=== PATIENT | male | born 1950 | race Caucasian/White ===

== ENCOUNTER 2018-04-27 13:15 | Emergency (ER) | payer MEDICARE, MEDICAID | END 2018-04-27 13:20 | disposition left against medical advice (07) | LOC: ER 13:15 | DX: Z53.21 Procedure and treatment not carried out due to patient leaving prior to being seen by health care provider (principal) ==

== ENCOUNTER 2018-06-08 19:10 | Emergency (ER) | payer MEDICARE, MEDICAID ==
[~2018-06-08] VITALS: Ht 172.7 cm; Wt 61.2 kg
[2018-06-08] MEDS ORDERED: DOCUSATE SODIUM 100 MG/10 ML LIQUID UDC ONE (20:09)
[2018-06-08] MEDS: DOCUSATE SODIUM 100 MG/10 ML LIQUID UDC OT ONE (20:14)
[2018-06-08 20:58] VITALS: BP 124/75
== END 2018-06-08 20:59 | disposition home or self-care (01) ==
LOC: ER 19:10
DX: H61.23 Impacted cerumen, bilateral (principal); K58.9 Irritable bowel syndrome, unspecified; F12.10 Cannabis abuse, uncomplicated; Z88.0 Allergy status to penicillin
CPT/HCPCS: A4663

== ENCOUNTER 2018-06-10 16:53 | Emergency (ER) | payer MEDICARE, MEDICAID ==
[~2018-06-10] VITALS: Ht 172.7 cm; Wt 70.3 kg
--- NOTE | 2018-06-10 17:11 | NUR ---
PATIENT WALKING TO ER EATING SHUKLA SANDWICH/CHOCOLATE MILK C/O CHRONIC ABD PAIN DENIES NAUSEA VOMITING DIARRHEA.
[2018-06-10] MEDS ORDERED: MAGNESIUM HYDROXIDE 30 ML LIQUID UDC ONE (17:57)
[2018-06-10] MEDS ORDERED: MAGNESIUM HYDROXIDE 30 ML LIQUID UDC PO ONE (18:00)
[2018-06-10 18:01] VITALS: BP 118/70
--- NOTE | 2018-06-10 18:02 | NUR ---
PATIENT CONDITION STABLE D/C HOME WITH INSTRUCTIONS AFTER CARE REVIEWED UNDERSTOOD LEFT ER VIA SELF ALERT, ORIENTED X4 AMBULATORY WITH STEADY GAIT.
== END 2018-06-10 18:03 | disposition home or self-care (01) ==
LOC: ER 16:56
DX: K59.00 Constipation, unspecified (principal); F12.10 Cannabis abuse, uncomplicated; Z88.0 Allergy status to penicillin
CPT/HCPCS: A4663

== ENCOUNTER 2018-06-19 15:01 | Inpatient (IN) | payer MEDICARE, MEDICAID ==
[~2018-06-19] VITALS: Ht 172.7 cm; Wt 64.4 kg
[2018-06-19] MEDS: LEVOFLOXACIN 500 MG/D5W 500 MG in PREMIXED 1 EACH IV SCH (00:21)
[2018-06-19] MEDS ORDERED: IV NORMAL SALINE 1000 ML BAG IV ONE (16:30)
[2018-06-19] MEDS ORDERED: DIATR MEGLU/DIATRIZOATE SODIUM 30 ML SOLUTION PO ONE (16:30)
[2018-06-19 16:42] LABS: *BILIRUBIN,URIN NEGATIVE (NEGATIVE); *BLOOD, URINE 2+ (NEGATIVE); *CLARITY,URINE CLEAR (CLEAR); *COLOR,URINE YELLOW (YELLOW); *KETONES,URINE NEGATIVE (NEGATIVE); *UROBILINOGEN,URINE 0.2 E.U./dl (NORMAL); LEUKOCYTE ESTERASE ,URINE NEGATIVE (NEGATIVE); NITRITE, URINE NEGATIVE (NEGATIVE); UGLUCOSE NEGATIVE (NEGATIVE)
[2018-06-19] MEDS ORDERED: DIATR MEGLU/DIATRIZOATE SODIUM 30 ML SOLUTION ONE (16:45)
[2018-06-19 16:51] LABS: BASOPHILS # (AUTO) 0.1 K/uL (0.0-8.0); BASOPHILS % (AUTO) 0.6 % (0.0-2.0); EOSINOPHILS % (AUTO) 0.3 % (0.0-7.0); HEMATOCRIT 42.1 % (36.7-47.1); HEMOGLOBIN 14.3 g/dL (12.5-16.3); LYMPHOCYTES # (AUTO) 1.6 K/uL (20.0-40.0); LYMPHOCYTES % (AUTO) 10.9 % (20.5-51.5); MEAN CORPUSCULAR HEMOGLOBIN 30.2 uug (23.8-33.4); MEAN CORPUSCULAR HGB CONC 34 g/dL (32.5-36.3); MEAN CORPUSCULAR VOLUME 89.2 fL (73.0-96.2); MONOCYTES # (AUTO) 1.4 K/uL (2.0-10.0); MONOCYTES % (AUTO) 9.6 % (0.0-11.0); NEUTROPHILS # (AUTO) 11.4 K/uL (1.8-8.9); NEUTROPHILS % (AUTO) 78.6 % (38.5-71.5); PLATELET COUNT (AUTO) 348 K/uL (152-348); RED BLOOD CELL COUNT(AUTO) 4.72 MIL/uL (4.06-5.63); WHITE BLOOD COUNT (AUTO) 14.5 K/uL (3.6-10.2)
[2018-06-19 16:59] LABS: CREATININE 1.2 mg/dL (0.6-1.3); POTASSIUM 3.8 mmol/L (3.5-5.1)
[2018-06-19 17:05] LABS: BILIRUBIN,DIRECT 0.1 mg/dL (0.0-0.2); BILIRUBIN,TOTAL 0.5 mg/dL (0.2-1.0)
[2018-06-19 17:08] LABS: MUCUS,URINE MANY /LPF (0-FEW); SQUAMOUS EPITHELIAL CELL,UR FEW /HPF (NONE SEEN); WBC,URINE 0-3 /HPF (0-3)
[2018-06-19] MEDS ORDERED: IV NORMAL SALINE 250 ML IV ONE (17:29)
[2018-06-19] MEDS ORDERED: NORMAL SALINE FLUSH 10 ML DISP.SYRIN ONE (17:29)
[2018-06-19] MEDS ORDERED: IOHEXOL 300MG/ML 100 ML INFUS..BTL ONE (17:29)
[2018-06-19] MEDS ORDERED: SWABABLE VALVE TRANSFER SET EA MC ONE (17:29)
--- NOTE | 2018-06-19 18:45 | NUR ---
Pt back from CT, NAD noted.
--- NOTE | 2018-06-19 19:09 | NUR ---
Received order from Previous RN. Awaiting results of CT abdomen and pelvis. Visual check done. Will continue to monitor.
--- NOTE | 2018-06-19 20:05 | NUR ---
CT results relayed to MD. Panel call made to possible admitting MD.
--- NOTE | 2018-06-19 22:00 | NUR ---
RECEIVED PATIENT VIA GURNEY FROM ER. PATIENT IS A/O X 3-4. VERY HYPER-VERBAL. NEEDS REDIRECTION AT TIMES. VSS UPON ADMISSION. PATIENT DENIES PAIN OR DISCOMFORT. NO RESP. DISTRESS NOTED. H/L INTACT AND PATENT. ORIENTED PATIENT TO ROOM AND CALL LIGHT. CALL LIGHT IN REACH. ALL NEEDS ATTENDED. WILL CONTINUE TO MONITOR AND ASSESS.
[2018-06-19] MEDS ORDERED: ONDANSETRON 4 MG/2 ML VIAL IV PRN (23:00)
[2018-06-19] MEDS ORDERED: ACETAMINOPHEN 325 MG TABLET PO PRN (23:00)
[2018-06-19] MEDS ORDERED: Z GUARD REMEDY PASTE 57 GM TUBE TOP PRN (23:00)
[2018-06-19] MEDS ORDERED: LEVOFLOXACIN 500 MG/D5W 100 ML ONE (23:09)
[2018-06-19] MEDS ORDERED: METRONIDAZOLE 500 MG/NS 100ML 100 ML IV ONE (23:09)
[2018-06-19] MEDS: IV NS 1000 ML 1,000 ML IV PRN (23:12)
[2018-06-19] MEDS: METRONIDAZOLE 500 MG/NS 100ML 500 MG in PREMIXED 1 EACH IV SCH ×2 (23:21→23:48)
[2018-06-20 05:27] VITALS: BP 116/75
[2018-06-20] MEDS ORDERED: METRONIDAZOLE 500 MG/NS 100ML 100 ML IV ONE (05:41)
[2018-06-20] MEDS: METRONIDAZOLE 500 MG/NS 100ML 500 MG in PREMIXED 1 EACH IV SCH ×3 (06:00→21:05)
[2018-06-20] MEDS: PANTOPRAZOLE SODIUM 40 MG TABLET.DR PO SCH (06:11)
[2018-06-20 06:17] LABS: BILIRUBIN,TOTAL 0.5 mg/dL (0.2-1.0); CREATININE 0.9 mg/dL (0.6-1.3); TOTAL PROTEIN, SERUM 6.6 g/dL (6.4-8.2)
[2018-06-20 06:28] LABS: THYROID STIMULATING HORMONE 1.585 mIU/mL (0.358-3.740)
[2018-06-20 06:54] LABS: BASOPHILS % (AUTO) 0.4 % (0.0-2.0); EOSINOPHILS # (AUTO) 0.2 K/uL (0.0-0.7); EOSINOPHILS % (AUTO) 1.4 % (0.0-7.0); HEMATOCRIT 37.7 % (36.7-47.1); HEMOGLOBIN 12.9 g/dL (12.5-16.3); LYMPHOCYTES # (AUTO) 1.5 K/uL (20.0-40.0); MEAN CORPUSCULAR HGB CONC 34 g/dL (32.5-36.3); MEAN CORPUSCULAR VOLUME 90.3 fL (73.0-96.2); MONOCYTES # (AUTO) 1.1 K/uL (2.0-10.0); MONOCYTES % (AUTO) 9.9 % (0.0-11.0); NEUTROPHILS # (AUTO) 8.1 K/uL (1.8-8.9); NEUTROPHILS % (AUTO) 74.3 % (38.5-71.5); PLATELET COUNT (AUTO) 291 K/uL (152-348); RED BLOOD CELL COUNT(AUTO) 4.17 MIL/uL (4.06-5.63)
[2018-06-20 11:05] VITALS: BP 128/75
[2018-06-20 15:31] VITALS: BP 112/64
[2018-06-20 19:00] VITALS: BP 129/70
--- NOTE | 2018-06-20 19:20 | NUR ---
Received patient walking in the hallway. A/Ox3-4. Denies any pain, has no SOB. Has an IV line on the right forearm, intact and patent. IVF infusing. Has no complaints of pain or discomfort. Needs assessed and attedned to. Safety and comfort measures initiated. Call martínez within reach. Will continue to monitor.
[2018-06-20] MEDS: ENOXAPARIN SODIUM 40 MG/0.4 ML DISP.SYRIN SQ SCH (20:25)
[2018-06-20] MEDS: IV NS 1000 ML 1,000 ML IV PRN (21:00)
[2018-06-20] MEDS: LEVOFLOXACIN 500 MG/D5W 500 MG in PREMIXED 1 EACH IV SCH (22:34)
[2018-06-20] MEDS: ZOLPIDEM 5 MG TABLET PO PRN (22:35)
[2018-06-21 04:00] VITALS: BP 110/64
[2018-06-21] MEDS: METRONIDAZOLE 500 MG/NS 100ML 500 MG in PREMIXED 1 EACH IV SCH ×2 (05:05→13:43)
[2018-06-21] MEDS: PANTOPRAZOLE SODIUM 40 MG TABLET.DR PO SCH (06:12)
--- NOTE | 2018-06-21 06:32 | NUR ---
Patient AAOx3. In no acute distress. No complaints of pain or SOB. IV line on the right forearm intact and patent. IVF infusing. No adverse reaction noted from IV ABX. Needs assessed and attended to. Safety measures maintained, call martínez within reach.
[2018-06-21 06:49] LABS: POTASSIUM 3.8 mmol/L (3.5-5.1)
[2018-06-21 07:02] LABS: BASOPHILS % (AUTO) 0.5 % (0.0-2.0); EOSINOPHILS # (AUTO) 0.1 K/uL (0.0-0.7); EOSINOPHILS % (AUTO) 1.4 % (0.0-7.0); HEMATOCRIT 42.6 % (36.7-47.1); HEMOGLOBIN 14.2 g/dL (12.5-16.3); LYMPHOCYTES # (AUTO) 1.5 K/uL (20.0-40.0); LYMPHOCYTES % (AUTO) 16.4 % (20.5-51.5); MEAN CORPUSCULAR HEMOGLOBIN 30.3 uug (23.8-33.4); MEAN CORPUSCULAR HGB CONC 33 g/dL (32.5-36.3); MEAN CORPUSCULAR VOLUME 90.9 fL (73.0-96.2); MONOCYTES # (AUTO) 0.9 K/uL (2.0-10.0); NEUTROPHILS # (AUTO) 6.6 K/uL (1.8-8.9); NEUTROPHILS % (AUTO) 71.7 % (38.5-71.5); PLATELET COUNT (AUTO) 309 K/uL (152-348); RED BLOOD CELL COUNT(AUTO) 4.69 MIL/uL (4.06-5.63); WHITE BLOOD COUNT (AUTO) 9.2 K/uL (3.6-10.2)
[2018-06-21 11:12] VITALS: BP 126/72
[2018-06-21] MEDS: IV NS 1000 ML 1,000 ML IV PRN (12:59)
[2018-06-21] MEDS ORDERED: FLEET ENEMA 133 ML BOTTLE RC PRN (14:00)
[2018-06-21] MEDS: LORAZEPAM 2 MG/1 ML VIAL IV PRN ×2 (14:16→23:33)
[2018-06-21 15:25] VITALS: BP 118/76
--- NOTE | 2018-06-21 18:46 | NUR ---
TODAY A CODE KENNETH WAS CALLED BECAUSE PT WAS HYPERVERBAL AND THREATENED THE CHARGE NURSE AND THE GI YARD MOTOR OPERATOR. PT IS SCREAMING AND BEING DISRUPTIVE ON THE UNIT. ATUL MOSS ORDERED ATIVAN FOR PT. MEDICATION EFFECTIVE. PT WILL BE NPO AFTER MIDNIGHT FOR SIGMOIDOSCOPY TOMORROW. PT IS AOX3, COOPERATIVE AT THIS TIME. SHOWS NO SIGNS OF RESPIRATORY DISTRESS.CONTINUE TO MONITOR PT.
[2018-06-21 19:00] VITALS: BP 129/82
--- NOTE | 2018-06-21 19:00 | NUR ---
RECEIVED PATIENT IN BED ALERT ORIENTED, WALKS AROUND HALLWAYS, REDIRECT PATIENT TO STAY IN HIS ROOM, PATIENT FOLLOW INSTRUCTIONS, REQUESTED IF HE CAN HAVE SHOWER, ASSISTED BY ELECTRIC METER READER IN SHOWER ROOMS. CONT TO MONITOR.
[2018-06-21] MEDS: ENOXAPARIN SODIUM 40 MG/0.4 ML DISP.SYRIN SQ SCH (20:08)
[2018-06-21] MEDS: METRONIDAZOLE 500 MG TABLET PO SCH (21:14)
[2018-06-21] MEDS: LEVOFLOXACIN 500 MG TABLET PO SCH (22:28)
--- NOTE | 2018-06-21 23:40 | NUR ---
PATIENT AGITATED AND UPSET TO GI PATROL POLICE SERGEANT, AND TELLING STAFF THAT HE HAD CONVERSATION TO PATROL POLICE SERGEANT EARLIER DURING AM SHIFT, AND PATIENT DID NOT LIKE IT. PATIENT AMBULATES AND WANDERS AROUND, REDIRECT PATIENT NOT TO WANDER AROUND OTHER ROOMS, AND TO KEPT VOICE DOWN. MEDICATE PATIENT FOR AGITATION, WILL CONTINUE TO MONITOR.
[2018-06-22] MEDS: ZOLPIDEM 5 MG TABLET PO PRN ×2 (00:05→23:30)
--- NOTE | 2018-06-22 01:30 | NUR ---
PATIENT STAYED IN HIS ROOM, MEDICATION FOR AGITATION EFFECTIVE AT THIS TIME. WILL CONT TO MONITOR.
[2018-06-22 04:00] VITALS: BP 118/78
--- NOTE | 2018-06-22 04:03 | NUR ---
PATIENT REFUSED IV FLUIDS, GETS AGITATED, STATING WANTING TO SLEEP. CONT TO MONITOR.
[2018-06-22] MEDS: PANTOPRAZOLE SODIUM 40 MG TABLET.DR PO SCH (06:38)
[2018-06-22] MEDS: METRONIDAZOLE 500 MG TABLET PO SCH ×3 (06:38→21:36)
[2018-06-22 06:59] LABS: BASOPHILS % (AUTO) 0.5 % (0.0-2.0); EOSINOPHILS # (AUTO) 0.2 K/uL (0.0-0.7); LYMPHOCYTES # (AUTO) 1.2 K/uL (20.0-40.0); LYMPHOCYTES % (AUTO) 16.2 % (20.5-51.5); MEAN CORPUSCULAR HEMOGLOBIN 30.6 uug (23.8-33.4); MEAN CORPUSCULAR HGB CONC 34 g/dL (32.5-36.3); MEAN CORPUSCULAR VOLUME 89.9 fL (73.0-96.2); MONOCYTES # (AUTO) 0.7 K/uL (2.0-10.0); MONOCYTES % (AUTO) 9.7 % (0.0-11.0); NEUTROPHILS # (AUTO) 5.3 K/uL (1.8-8.9); NEUTROPHILS % (AUTO) 71.6 % (38.5-71.5); PLATELET COUNT (AUTO) 280 K/uL (152-348); RED BLOOD CELL COUNT(AUTO) 4.18 MIL/uL (4.06-5.63); WHITE BLOOD COUNT (AUTO) 7.5 K/uL (3.6-10.2)
[2018-06-22 07:07] LABS: CREATININE 0.9 mg/dL (0.6-1.3); POTASSIUM 4.1 mmol/L (3.5-5.1)
--- NOTE | 2018-06-22 07:14 | NUR ---
PATIENT SLEPT MOST OF THE NIGHT, CONTINUE TO REFUSED IV FLUIDS GETS AGITATED. ENDORSE TO NEXT SHIFT.
[2018-06-22 07:32] LABS: HEMATOCRIT 37.6 % (36.7-47.1); HEMOGLOBIN 12.8 g/dL (12.5-16.3)
--- NOTE | 2018-06-22 08:00 | NUR ---
RECEIVED PATIENT IN BED ASLEEP, EASILY AROUSED AOX3, IRRITABLE. PATIENT COMPLAINS OF GENERALIZED PAIN BUT DECLINED PAIN MEDICATION AT THIS TIME. LT AC IV INTACT. WILL CONTINUE TO MONITOR FOR SAFETY. Addendum: 06/22/18 at 1636 by YULISA MASON RN RECEIVED PATIENT IN BED ASLEEP, EASILY AROUSED AOX3, IRRITABLE. PATIENT COMPLAINS OF GENERALIZED PAIN BUT DECLINED PAIN MEDICATION AT THIS TIME. RT. FOREARM IV INTACT. WILL CONTINUE TO MONITOR FOR SAFETY.
[2018-06-22] MEDS: MIRALAX 17 GM POWD.PACK PO SCH ×2 (09:00→21:07)
--- NOTE | 2018-06-22 10:20 | NUR ---
PATIENT STATED THAT HE FEELS CONSTIPATED BUT HE REFUSED MEDICATION FOR CONSTIPATION. NURSE OFFERED HIM PRUNE JUICE WHICH PATIENT WAS ABLE TO DRINK.
[2018-06-22 11:18] VITALS: BP 121/75
[2018-06-22] MEDS: IV NS 1000 ML 1,000 ML IV PRN (15:24)
--- NOTE | 2018-06-22 17:45 | NUR ---
DURING THE SHIFT PATIENT STATED THAT HE HAS A BODY THAT IS FAILING HIM AND THAT HE WISHES HE WAS . THE PSYCHIATRIST CAME IN TO SEE PATIENT BUT THE PATIENT DID NOT WANT TO TALK WITH HER. RN TOLD DR. ROBLERO THAT THE PATENT STATED TO THE NURSE.
--- NOTE | 2018-06-22 19:30 | NUR ---
PATIENT AGITATED AND IRRITATED THROUGHOUT THE SHIFT. FIXIATED ON GI ISSUES THAT ARE GOING ON WITH HIM AND STATED THAT NO ONE IS ADDRESSING THE GI ISSUE. VITAL SIGNS STABLE THROUGHOUT SHIFT. IV INTACT. REPORT GIVEN TO PROJECT FINANCIAL ANALYST.
--- NOTE | 2018-06-22 19:30 | NUR ---
RECEIVED IN THE ROOM ALERT AWAKE, SLIGHTLY AGITATED, REFUSED TO TAKE ANY SCHEDULED MEDICATIONS AT THIS TIME. WILL CONT TO OFFER.
[2018-06-22 20:00] VITALS: BP 109/62
--- NOTE | 2018-06-22 21:08 | NUR ---
PATIENT COMPLAINING OF CONSTIPATION, AND WANTED TO TAKE HIS MIRALAX MEDICATION WHICH HE REFUSED EARLIER. PATIENT HAD BOWEL MOVEMENT MEDIUM AMOUNT BEFORE MIRALAX AND ENEMA. INSTRUCTED PATIENT TO WAIT FOR THE EFFECT OF MIRALAX. WILL CONT TO MONITOR.
[2018-06-22] MEDS: MORPHINE SULFATE 4 MG/1 ML DISP.SYRIN IV PRN (21:35)
[2018-06-22] MEDS: ENOXAPARIN SODIUM 40 MG/0.4 ML DISP.SYRIN SQ SCH (21:45)
[2018-06-22] MEDS: LEVOFLOXACIN 500 MG TABLET PO SCH (23:16)
[2018-06-23] MEDS: MORPHINE SULFATE 4 MG/1 ML DISP.SYRIN IV PRN ×2 (02:42→08:34)
[2018-06-23 04:00] VITALS: BP 126/67
[2018-06-23] MEDS: METRONIDAZOLE 500 MG TABLET PO SCH ×2 (05:39→14:00)
[2018-06-23] MEDS: PANTOPRAZOLE SODIUM 40 MG TABLET.DR PO SCH (06:09)
--- NOTE | 2018-06-23 06:28 | NUR ---
PATIENT SLEPT MOST OF THE NIGHT CONT ON PAIN MANAGEMENT, PATIENT HAD ONE BOWEL MOVEMENT AFTER MIRALAX, PATIENT HAS MULTIPLE COMPLAIN OF EVERYTHING, STAFF TRIES TO ATTEND PATIENT NEEDS BUT STILL UNHAPPY OF MOSTLY EVERYTHING. WILL ENDORSE PATIENT REQUEST AND COMPLAIN TO AM RN NURSE.
--- NOTE | 2018-06-23 07:30 | NUR ---
PATIENT RECEIVED LYING IN BED AWAKE AND ALERT, IRRITABLE. PATIENT REQUESTING TO KNOW WHAT PLAN WILL BE, PATIENT EDUCATED AND REDIRECTED, PATIENT TO BE SEEN AND MEDICALLY CLEARED, POSSIBLE DISCHARGE. PATIENT HYPERVERBAL, ARGUMENTATIVE. PATIENT DOES NOT LIKE ANSWER REGARDLESS OF INFORMATION PROVIDED TO HIM.
[2018-06-23] MEDS: IV NS 1000 ML 1,000 ML IV PRN (07:51)
--- NOTE | 2018-06-23 08:30 | NUR ---
PATIENT AMBULATING IN HALLWAY COMPLAINING TO OTHER NURSE ABOUT MD AND NEEDS NOT BEING MET. PATIENT MEDICALLY STABLE, IMAGING AND LABS. PATIENT ARGUMENTATIVE REDIRECTABLE TO ROOM AT THIS TIME. PATIENT NEEDY AND ATTENTION SEEKING, PATIENT DOES NOT CARE WHAT RESULTS SHOW HE STATES HE IS STILL MEDICALLY DECLINING EDUCATED FOR EMOTIONAL SUPPORT.
[2018-06-23] MEDS: MIRALAX 17 GM POWD.PACK PO SCH (08:35)
--- NOTE | 2018-06-23 10:30 | NUR ---
REFUSED IV ATIVAN, WASTED MEDICATION
[2018-06-23 11:03] VITALS: BP 120/76
--- NOTE | 2018-06-23 12:36 | NUR ---
PATIENT VERBALIZING HE MIGHT WELL OF A LETHAL INJECTION THIS IS NO QUALITY OF LIFE. PATIENT REDIRECTED. DENIES ANY SUICIDAL IDEATION DENIES ANY PLAN, VERBALIZES THAT IT IS JUST A FIGURE OF SPEECH BECAUSE THIS IS NO QUALITY LIFE.. CONTINUE TO ASSESS. PATIENT REFUSES TO SPEAK TO PSYCHIATRY.
[2018-06-23 15:13] VITALS: BP 148/88
--- NOTE | 2018-06-23 16:30 | NUR ---
Discharge Note Patient continues alert and oriented today, compliant with meds however irritable and argumentative despite consultations and post doctoral researcher medically clearing patient for discharge, patient is anxious, hyperverbal argumentative, tangential and repetitive with discussion about His "medical Condition" that has worsened but is not being taken seriously. patient redirected for emotional support. patient provided with discharge instructions, Per post doctoral researcher DC back to board and care, patient to Follow up with PCP within 1 week, Followup with your psychologist as scheduled, Followup with your colorectal surgeon outpatient for possible flex sigmoidoscopy per GI recs. Patient to Seek immediate medical attention for worsening symptoms, chest pain, shortness of breath, palpitations, abdominal pain distention, intractable nausea and vomiting, diarrhea, hematochezia, melena, weakness, loss of consciousness, neurological deficit, or any other emergent concerns. patient continued anxious stating this is no quality of life, however denies any SI/HI denies any plan, patient evaluated by crisis team and did not meet criteria for hold. patient educated on SI and patient to seek help when in crisis. ID band removed, IV line removed. patient belongings returned and accounted. patient discharged via taxi voucher back to his facility.
== END 2018-06-23 16:30 | DRG 392 ==
LOC: ER 15:04 → MED 21:28
PROVIDERS: ADMIT Nurse Practitioner Acute Care; ATTEND Hospitalist
DX: K58.2 Mixed irritable bowel syndrome (principal); K92.2 Gastrointestinal hemorrhage, unspecified; N13.2 Hydronephrosis with renal and ureteral calculous obstruction; Z90.49 Acquired absence of other specified parts of digestive tract; N40.0 Benign prostatic hyperplasia without lower urinary tract symptoms; K44.9 Diaphragmatic hernia without obstruction or gangrene; G89.29 Other chronic pain; F20.9 Schizophrenia, unspecified; K40.90 Unilateral inguinal hernia, without obstruction or gangrene, not specified as recurrent; K42.9 Umbilical hernia without obstruction or gangrene; N28.1 Cyst of kidney, acquired
CPT/HCPCS: 36415; 70030-TC; 71045; 74018; 82378; 83605; 83690; 83735; 84100; 84443; 85025; 85730; 87040; 87086; 93005; A4663; G0378; J1650; J1956; J2060; J2270; J3490; J7030; J7050; Q9963; Q9967

== ENCOUNTER 2018-09-06 17:06 | Emergency (ER) | payer MEDICARE, MEDICAID ==
[~2018-09-06] VITALS: Ht 172.7 cm; Wt 68.0 kg
[2018-09-06 17:39] LABS: BASOPHILS # (AUTO) 0.1 K/uL (0.0-8.0); BASOPHILS % (AUTO) 0.7 % (0.0-2.0); EOSINOPHILS # (AUTO) 0.2 K/uL (0.0-0.7); EOSINOPHILS % (AUTO) 2.8 % (0.0-7.0); HEMOGLOBIN 12.4 g/dL (12.5-16.3); LYMPHOCYTES # (AUTO) 1.8 K/uL (20.0-40.0); LYMPHOCYTES % (AUTO) 24.1 % (20.5-51.5); MEAN CORPUSCULAR HEMOGLOBIN 29.5 uug (23.8-33.4); MEAN CORPUSCULAR HGB CONC 33 g/dL (32.5-36.3); MEAN CORPUSCULAR VOLUME 88.3 fL (73.0-96.2); MONOCYTES # (AUTO) 0.7 K/uL (2.0-10.0); MONOCYTES % (AUTO) 9.2 % (0.0-11.0); NEUTROPHILS # (AUTO) 4.7 K/uL (1.8-8.9); NEUTROPHILS % (AUTO) 63.2 % (38.5-71.5); PLATELET COUNT (AUTO) 289 K/uL (152-348); RED BLOOD CELL COUNT(AUTO) 4.19 MIL/uL (4.06-5.63); WHITE BLOOD COUNT (AUTO) 7.5 K/uL (3.6-10.2)
[2018-09-06 17:49] LABS: POTASSIUM 3.7 mmol/L (3.5-5.1)
--- NOTE | 2018-09-06 18:24 | NUR ---
PATIENT WAS SEEN BY . 12 LEAD EKG, XRAYS AND LABS DONE. DC, RX AND FOLLOW UP INSTRUCTIONS GIVEN AND EXPLAINED TO PATIENT WHO STATES HE UNDERSTANDS ALL INSTRUCTIONS.
== END 2018-09-06 18:27 | disposition home or self-care (01) ==
LOC: ER 17:06
DX: R07.89 Other chest pain (principal); R00.2 Palpitations; R61 Generalized hyperhidrosis; F12.10 Cannabis abuse, uncomplicated; Z88.0 Allergy status to penicillin
CPT/HCPCS: 36415; 70030-TC; 71045; 85025; 93005; A4663

== ENCOUNTER 2018-09-07 13:43 | Emergency (ER) | payer MEDICARE, MEDICAID ==
[~2018-09-07] VITALS: Ht 172.7 cm; Wt 68.0 kg
--- NOTE | 2018-09-07 14:19 | NUR ---
DENISE JAUREGUI AT BEDSIDE FOR MSE.
--- NOTE | 2018-09-07 14:25 | NUR ---
PT REQUESTING TO SPEAK W/ A SPINNER CONTINUOUS. FAMILIA TOPETE, CALLED.
[2018-09-07] MEDS ORDERED: DOCUSATE SODIUM 100 MG CAPSULE PO ONE (14:36)
[2018-09-07] MEDS ORDERED: DOCUSATE SODIUM 100 MG/10 ML LIQUID UDC OT ONE (14:45)
--- NOTE | 2018-09-07 15:44 | NUR ---
FAMILIA TOPETE, AT BEDSIDE W/ PT.
--- NOTE | 2018-09-07 16:11 | NUR ---
Patient discharged to home in stable conditon. Written and verbal after care instructions given. Patient verbalizes understanding of instructions. Pt stated he took the bus here and will take the bus back to his board and care facility. Pt was seen by the social work professor prior to discharge. Pt ambulated out of ER with steady gait.
--- NOTE | 2018-09-07 16:42 | NUR ---
3:30pm: SW arrived to ED to meet with patient, per patient's request to meet with a SW. Patient is a 68 year old male; he was standing in the middle of his assigned ED room. Patient was receptive to meeting with this SW. Patient stated that he lives in a board and care, but wanted to discuss some community mental health services with this SW. Patient provided SW with a history of his medical and mental health, and negative experiences with doctor's and therapists in the past. Speech with tangential, pressured, and his voice became louder and louder when speaking with this SW. SW attempted to redirect patient on several occasions, but was unsuccessful. Patient discussed his plans to obtain services at either [facility] or at [facility], and SW confirmed both agencies being large agencies with multiple services and programs that may be beneficial for patient's needs. Patient expressed being glad to hear that he had picked good options. SW discussed patient's discharge plans, and patient stated he would return to his board and care. SW provided patient with a pair of pants because his pants were torn, but patient declined. SW asked patient if there were any other social service needs that SW could provided assistance with, and patient stated that he was fine and that he just wanted to discuss the above mentioned agencies with the SW. No further SS assistance/interventions needed at this time.
== END 2018-09-07 16:13 | disposition home or self-care (01) ==
LOC: ER 13:43
DX: H61.23 Impacted cerumen, bilateral (principal); F12.10 Cannabis abuse, uncomplicated; Z88.0 Allergy status to penicillin
CPT/HCPCS: A4663

== ENCOUNTER 2018-11-22 19:13 | Emergency (ER) | payer MEDICARE, MEDICAID ==
[~2018-11-22] VITALS: Ht 172.7 cm; Wt 68.0 kg
--- NOTE | 2018-11-22 20:45 | NUR ---
Patient discharged to home in stable conditon. Written and verbal after care instructions given. Patient verbalizes understanding of instructions. walked out of er with no distress noted
== END 2018-11-22 20:47 | disposition home or self-care (01) ==
LOC: ER 19:14
DX: H60.93 Unspecified otitis externa, bilateral (principal); F12.10 Cannabis abuse, uncomplicated; Z88.0 Allergy status to penicillin
CPT/HCPCS: A4663

== ENCOUNTER 2019-08-20 11:23 | Emergency (ER) | payer MEDICARE, OTHER, MEDICAID ==
[~2019-08-20] VITALS: Ht 172.7 cm; Wt 68.9 kg
--- NOTE | 2019-08-20 12:04 | NUR ---
Patient discharged to home in stable conditon. Written and verbal after care instructions given. Patient verbalizes understanding of instructions.
[2019-08-20 12:05] VITALS: BP 107/84
== END 2019-08-20 12:05 | disposition home or self-care (01) ==
LOC: ER 11:23
DX: H61.23 Impacted cerumen, bilateral (principal); Z88.0 Allergy status to penicillin
CPT/HCPCS: A4663

== ENCOUNTER 2022-05-27 14:10 | Emergency (ER) | payer MEDICARE, OTHER ==
[~2022-05-27] VITALS: Ht 172.7 cm; Wt 66.7 kg
--- NOTE | 2022-05-27 14:29 | NUR ---
MD@bedside, medical screening exam in progress
[2022-05-27] MEDS ORDERED: CARB15DR63 EACH EAR (14:40)
--- NOTE | 2022-05-27 16:54 | NUR ---
Patient is eating hot food tray with good appetite, NAD. Patient said that he feels much better after the ear irrigation.
--- NOTE | 2022-05-27 17:25 | NUR ---
Patient discharged to home in stable condition. Written and verbal after care instructions given. Patient verbalizes understanding of instructions. Stressed follow up or return to ER for worsening s/s. Patient walked out with stable gait after voiding and eating.
[2022-05-27 17:26] VITALS: BP 110/70
== END 2022-05-27 17:27 | disposition home or self-care (01) ==
LOC: ER 14:10
DX: H61.23 Impacted cerumen, bilateral (principal); Z88.0 Allergy status to penicillin
CPT/HCPCS: A4663

== ENCOUNTER 2022-06-08 18:42 | Emergency (ER) | payer MEDICARE, OTHER ==
[~2022-06-08 18:42] MED LIST: CARB15DR63 EACH EAR
--- NOTE | 2022-06-08 19:20 | NUR ---
PATIENT WAS CALLED TO BE TRIAGED BUT WAS NOT PRESENT IN THE WAITING ROOM OR OUTSIDE OF ER.
--- NOTE | 2022-06-08 20:00 | NUR ---
PATIENT WAS CALLED TO BE TRIAGED BUT WAS NOT PRESENT.
--- NOTE | 2022-06-08 20:45 | NUR ---
PATIENT WAS CALLED TO BE TRIAGED BUT WAS NOT PRESENT IN THE WAITING ROOM OR OUTSIDE OF ER. PATIENT WAS NOT TRIAGED OR SEEN BY ERMD.
== END 2022-06-08 20:45 | disposition left against medical advice (07) ==
LOC: ER 18:42
DX: Z53.21 Procedure and treatment not carried out due to patient leaving prior to being seen by health care provider (principal)

== ENCOUNTER 2022-06-09 15:01 | Emergency (ER) | payer MEDICARE, OTHER ==
[~2022-06-09] VITALS: Ht 172.7 cm; Wt 64.9 kg
== END 2022-06-09 16:37 | disposition home or self-care (01) ==
LOC: ER 15:01
DX: H61.22 Impacted cerumen, left ear (principal); Z88.0 Allergy status to penicillin
CPT/HCPCS: A4663

== ENCOUNTER 2022-06-22 10:24 | Inpatient (IN) | payer MEDICARE, OTHER ==
[~2022-06-22] VITALS: Ht 172.7 cm; Wt 64.9 kg
--- NOTE | 2022-06-22 10:35 | NUR ---
Pt ambulatory to room 4B. Pt c/o decreased hearing to right ear, states he has ear wax and would like his ears "cleaned out". Pt has been seen here multiple times for cerumen impaction.
--- NOTE | 2022-06-22 11:16 | NUR ---
Pt requested to talk to a social media marketing analyst, Cheyanne Warner was paged. SW talked to the pt, upon assessment, pt needs to have a psych consult. Tanya Amaro was paged.
--- NOTE | 2022-06-22 13:01 | NUR ---
Social work consult was requested for a patient in the emergency room. Patient is 72-year-old white male and he is alert and oriented X3. Patient presents with irritable mood and congruent affect and appears agitated and paranoid. Patients speech is tangential and pressured and he states he is feeling suicidal because APS is trying to take things away from me. SW unable to ascertain history of substance abuse or ascertain history of psychiatric diagnosis. Patient does not want to voluntarily go to a psychiatric hospital. EMETERIO contacted crisis team, Oscar Barnard ([phone]) for an assessment. SW informed patients nurse Brock and Dr. Paz.
--- NOTE | 2022-06-22 13:40 | NUR ---
Pt was seen by Oscar Conde and placed on a 5150 Hold. Per Art pt may be admitted to MHU at this facility.
--- NOTE | 2022-06-22 17:46 | NUR ---
Pt stable, afebrile, calm and cooperative. Rolled pt to MHU to room 145B, received by nurse Small.
[2022-06-22] MEDS ORDERED: ACETAMINOPHEN 325 MG TABLET PO PRN (20:45)
--- NOTE | 2022-06-22 21:00 | NUR ---
ADMISSION NOTES: Admitted a 72 y/o male patient, coming from Home and was evaluated in the [facility] ER for 5150 d/t DTS, as per hold patient was found to be agitated, depressed and having suicidal ideation w/ a plan to OD. 5150 was placed on 06/22/22 @ 1330 and ends on 06/25/22 @1330. Upon receiving patient for face to face evaluation, patient starts to yell and scream at staff stating "I am not supposed to be in this [facility], the social media sr strategy manager did me wrong and placed me here illegally" Informed patient that he is on legal hold as per evaluation of crisis team of him having a comment about SI. Patient then became more hostile and enraged denying that he made a comment of SI. Patient is also having delusional statements " You are being prejudice, keeping me here is a waste of insurance and waste of money, you are all NAZI's here". This publications writer tries to calm the patient at this time and set limits with his behavior. Patient not understanding any information given at this time d/t present hostility. Patient also refused to sign documents at this time or participate in initial assessment process. Patient then proceed to his room and covers himself. Patient in general appearance to be looking unkempt, well-nourished and ambulatory w/ steady gait. Patient refused head to toe assessment. Advisement and patient rights handbook given at patients bedside. This patient will be under care of Dr. Perez as psychiatrist and Dr. Ruiz as medical MD. All safety strategies left in place.
--- NOTE | 2022-06-23 10:02 | NUR ---
EMETERIO Initial Discharge Note: Pt currently resides at home alone located at [address] [place] [phone] ([phone]). Pt stated he has no family or friends. EMETERIO will continue to check for support for the pt. EMETERIO will continue to work with pt, family and MD to ensure a safe and proper discharge plan.
--- NOTE | 2022-06-23 10:45 | NUR ---
SW Family Contact: Pt does not have any family contact at this time.
--- NOTE | 2022-06-23 12:07 | NUR ---
Clinical SW Note: Pt appears very intrusive, verbally abusive, accusatory, with poor boundaries and not redirectable. Pt appeared hostile and leans over the nursing station extending his arms and pointing while speaking to staff.
[2022-06-23] MEDS ORDERED: DIVALPROEX 250 MG TABLET.DR PO SCH (14:30)
[2022-06-23] MEDS ORDERED: diphenhydrAMINE 50 MG/1 ML VIAL IM ONE (14:45)
[2022-06-23] MEDS ORDERED: LORAZEPAM 2 MG/1 ML VIAL IM ONE (14:45)
[2022-06-23] MEDS ORDERED: HALOPERIDOL LACTATE 5 MG/1 ML VIAL IM ONE (14:45)
--- NOTE | 2022-06-23 15:28 | NUR ---
Patient became anxious, agitated, confused, combative, manic, striking out at others. Psychiatrist ordered Ativan 2 mg IM, Haldol 5 mg IM, Benadryl 25 mg IM, security was called and 4 people were necessary to administer medications, no force needed. Reality orientation provided. Fall and safety precautions implemented.
--- NOTE | 2022-06-23 17:46 | NUR ---
Received patient awake in the hallway. Patient is hyperverbal, intrusive, manic, disorganized, accusatory. Patient is A/O X 3 to person, place. Patient is encourage to verbalize concerns. Fall and safety precautions implemented.
[2022-06-23] MEDS: DIVALPROEX 500 MG TABLET.DR PO SCH (21:00)
[2022-06-23] MEDS: OLANZAPINE ZYDIS 5 MG TAB.RAPDIS PO SCH (21:00)
--- NOTE | 2022-06-24 05:47 | NUR ---
Patient refused to take his Seroquel and Depakote as ordered. Educated patient on the importance of compliance to medications and presented the effect if he refuse his psych medications. He then becomes defensive and loud with the technical report writer stating that "You are keeping me here to put money on your pocket" "I don't need to put those pills inside my body, I am not a junkie". Set limits to his hostile behavior. He calms down, then asks for ensure w/c was provided then walks back to his room. He is observed to be sleeping intermittently w/ frequent trips to the restroom. Frequent monitoring observed for any escalations of behavior. Safety strategies in placed.
[2022-06-24] MEDS: DIVALPROEX 500 MG TABLET.DR PO SCH ×3 (08:36→21:39)
--- NOTE | 2022-06-24 10:57 | NUR ---
Firearms Report: Farm Helper completed and submitted a [employer] firearms report for 5150 a danger to himself. A copy of report has been placed in patient chart.
[2022-06-24 16:00] VITALS: BP 115/75
--- NOTE | 2022-06-24 16:15 | NUR ---
Received patient awake in the hallway. Patient is A/O X 3 to person, place. Patient is hyperverbal, paranoid, suspicious, needy, demanding. Requires minimal assistance with ADL. Pt. is encourage to verbalize concerns. Fall and safety precautions implemented.
[2022-06-24] MEDS: ENSURE ENLIVE (VAN) 240 ML LIQUID PO SCH (17:22)
[2022-06-24 20:23] VITALS: BP 121/66
[2022-06-24] MEDS: OLANZAPINE ZYDIS 5 MG TAB.RAPDIS PO SCH (21:31)
[2022-06-24] MEDS: TEMAZEPAM 7.5 MG CAPSULE PO PRN ×3 (21:32→22:38)
[2022-06-24] MEDS: CLONAZEPAM 0.5 MG TABLET PO PRN ×2 (21:32→21:41)
--- NOTE | 2022-06-25 07:03 | NUR ---
GPS; SHIFT NOTE: RECEIVED PATIENT ALERT AND ORIENTED X 3 NO SIGNS OF DISTRESSED NOTED. PT REQUESTED CLOTHING FROM NURSES INFORMED PT CLOTHES STILL IN DRYER. AFTERWARDS PT WENT TO BED AND INDEPENDENT WITH CARE. PT REFUSED HS MEDICATION STATES" I PREFER TO GET A SHOT AND I HATE TAKING PILLS AND SWALLOWING THEM'. PT WAS AWAKENED FROM SLEEP BECAUSE ROOMMATE TOOK SHOES GAVE PT SHOES BACK. INFORMED WILL MAKE SURE PT DOESN'T TAKE SHOES AGAIN.
[2022-06-25 07:30] VITALS: BP 113/77
[2022-06-25] MEDS: ENSURE ENLIVE (VAN) 240 ML LIQUID PO SCH ×2 (08:00→17:22)
--- NOTE | 2022-06-25 14:58 | NUR ---
Received patient sleeping in his room. Patient is A/O X 3 to person, place. Patient is demanding, needy, accusatory, argumentative, delusional. Patient states "I'm not worthy, nobody loves me" "Nobody tries to help me". Active listening provided. Fall and safety precautions implemented.
[2022-06-25 17:03] VITALS: BP 150/88
[2022-06-25 20:47] VITALS: BP 127/77
[2022-06-25] MEDS ORDERED: OLANZAPINE ZYDIS 5 MG TAB.RAPDIS PO SCH (21:00)
[2022-06-25] MEDS: DIVALPROEX 500 MG TABLET.DR PO SCH (21:00)
[2022-06-25] MEDS: MAGNESIUM HYDROXIDE 30 ML LIQUID UDC PO PRN (21:11)
[2022-06-26] MEDS: TEMAZEPAM 7.5 MG CAPSULE PO PRN (02:25)
[2022-06-26] MEDS: MAG HYDROX/AL HYDROX/SIMETH 30 ML LIQUID UDC PO PRN (02:25)
--- NOTE | 2022-06-26 03:21 | NUR ---
Received patient in the day room yelling at another patient over nothing . This senior grant writer found it difficult to de escalate the situation. The patient in hyperverbal, loud, delusional, disorganized and a poor listener. The patient refused to take his PM medication Depakote, and was argumentative about taking the Zyprexa. No sleep noted so far this shift. The patient has high energy and has been going back and forth in the unit, attention seeking from the staff and making statements such as " I have taken LSD over 200 times in my life. That is the only real drug. " Safety Stratiges are in place and continuing to monitor the patient for behavior escalation. The Patient denies SI and becomes irritated with this senior grant writer when questioned about it.
[2022-06-26] MEDS: ENSURE ENLIVE (VAN) 240 ML LIQUID PO SCH ×2 (08:00→17:00)
[2022-06-26 08:06] VITALS: BP 119/68
[2022-06-26] MEDS: DIVALPROEX 500 MG TABLET.DR PO SCH ×2 (08:20→21:00)
[2022-06-26 16:16] VITALS: BP 124/81
[2022-06-26 19:56] VITALS: BP 140/72
[2022-06-26] MEDS: CLONAZEPAM 0.5 MG TABLET PO PRN (19:57)
[2022-06-26] MEDS ORDERED: OLANZAPINE ZYDIS 5 MG TAB.RAPDIS PO SCH (21:00)
[2022-06-26] MEDS: MAGNESIUM HYDROXIDE 30 ML LIQUID UDC PO PRN (21:40)
--- NOTE | 2022-06-27 04:09 | NUR ---
Received patient in a hyperverbal state, loud , intrusive and pacing all around the unit. This customs entry writer attempted to engage in a conversation and deescalate the patient but he speaks over the staff and this customs entry writer was unable to get a word in edge gonzalez. The patient is difficult to communicate with and has tangental speech and delusional thoughts. The patient refused the PM Depakote, but was willing to take Zyprexa and PRN Klonopin for his anxiety. Eventually, the patient calmed down and went to bed. Safety stratiges are in place and there is ongoing monitoring for behavior escalation. No active SI, per patient, noted at this time.
[2022-06-27 08:06] VITALS: BP 94/54
[2022-06-27] MEDS: CLONAZEPAM 0.5 MG TABLET PO PRN ×4 (08:42→23:09)
[2022-06-27] MEDS: DIVALPROEX 500 MG TABLET.DR PO SCH ×2 (09:00→21:00)
[2022-06-27] MEDS: ENSURE ENLIVE (VAN) 240 ML LIQUID PO SCH (10:00)
--- NOTE | 2022-06-27 16:58 | NUR ---
patient is alert and oriented less intrusive and less agitation , compliant with medication ,freddy cooperative and follow direction with staffs.will continue close monitoring.
[2022-06-27 20:03] VITALS: BP 138/71
[2022-06-27] MEDS ORDERED: OLANZAPINE ZYDIS 5 MG TAB.RAPDIS PO SCH (21:00)
[2022-06-27] MEDS: MAG HYDROX/AL HYDROX/SIMETH 30 ML LIQUID UDC PO PRN (23:10)
--- NOTE | 2022-06-28 02:45 | NUR ---
The patients behavior has not improved from the night before. The patient has been yelling at staff and other patients, hyperverbal, argumentative. It is difficult to de escalate or redirect him. Poor social skills, easily triggered, delusional and angry. The patient continues to refuse the PM Depakote, but did take Zyprexa. This patient is intense and intrusive with no regard to the unit rules, social norms or other people sharing this unit space. The patient believes he is being discharge tomorrow ? Safety Stratiges are in place and will continue to monitor the patient for aggressiveness and behavior escalation.
[2022-06-28 08:17] VITALS: BP 106/52
[2022-06-28] MEDS: ENSURE ENLIVE (VAN) 240 ML LIQUID PO SCH ×2 (08:42→08:45)
--- NOTE | 2022-06-28 09:41 | NUR ---
SW Discharge Update: EMETERIO spoke with Cindy at pt's independent living [phone] and informed her of pt's return home today at 1pm. Cindy is aware and agreeable and informed this SW that she will inform the staff as well.
--- NOTE | 2022-06-28 12:16 | NUR ---
EMETERIO Discharge Note: Pt will be discharged [place] located at [address] [facility] [address] [place] [phone] ([phone]) via [employer] transportation ([phone]) at 1PM confirmed by glue wheel operator [id number]. EMETERIO spoke with Cindy at pt's independent living [phone] who states they are ready to accept the patient today. Pt does not have any family contact at this time. Pt is aware and agreeable with discharge plan. Pt is alert and oriented x2. Pt is agreeable to return to his independent living under their care. Pt denies any suicidal or homicidal ideation. Pt will follow-up an outpatient psychiatrist and psychologist assigned at [facility] located at [address] [place] [phone] ([phone]) via teletherapy on the 2021 at 1:30PM. Pt presents with calm mood and congruent affect.
--- NOTE | 2022-06-28 13:13 | NUR ---
Discharged patient home located at [address] [place] [phone] via [employer] transportation at 1PM. Pt is alert and oriented x2. Pt is agreeable to return to his independent living under their care. Pt denies any suicidal or homicidal ideation. Pt will follow-up an outpatient psychiatrist and psychologist assigned at [facility] located at [address] [place], [place] [phone] ([phone]) via teletherapy on the 2021 at 1:30PM. all personal belonging returned to patient.
[2022-06-28] MEDS ORDERED: OLANZAPINE ZYDIS 5 MG TAB.RAPDIS PO SCH (21:00)
== END 2022-06-28 13:00 | disposition home or self-care (01) | DRG 885 ==
LOC: ER 10:24 → GPS 17:21
PROVIDERS: ADMIT Psychiatry & Neurology Psychiatry; ATTEND Internal Medicine
DX: F29 Unspecified psychosis not due to a substance or known physiological condition (principal); F39 Unspecified mood [affective] disorder; H61.23 Impacted cerumen, bilateral; K58.9 Irritable bowel syndrome, unspecified; Z20.822 Contact with and (suspected) exposure to COVID-19; F31.9 Bipolar disorder, unspecified
CPT/HCPCS: A4663; J1200; J1630; J2060

== ENCOUNTER 2024-02-21 17:26 | Emergency (ER) | payer MEDICARE, OTHER ==
[~2024-02-21] VITALS: Ht 177.8 cm; Wt 68.5 kg
[2024-02-21 17:52] VITALS: O2SAT 98
[2024-02-21] MEDS ORDERED: CARB15DR63 EACH EAR (17:55)
--- NOTE | 2024-02-21 18:00 | NUR ---
PT SAFETY DISCHARGE BY MD, INSTRUCTIONS AND RX WAS GIVEN, PT REFUSES TO SIGN AND TAKE DISCHARGE PAPERWORK AND REFUSES TO FOLLOW UP WITH INSTRUCTIONS. RN INSISTED WITH CARE AT HOME AND TOLD PT THAT HE ALWAYS CAN RETURN IF SYMPTOMS/SIGNS APPEARS OR GET WORSE. PT VERBALIZES UNDERSTANDING. PT STABLE, AAOX4, NO C/O PAIN AT THIS TIME, AMBULATORY WITH STEADY GAIT, LEAVES ER WITH ALL BELONGINGS IN HAND.
== END 2024-02-21 18:00 | disposition home or self-care (01) ==
LOC: ER 17:26
DX: H61.23 Impacted cerumen, bilateral (principal); Z98.890 Other specified postprocedural states; Z79.899 Other long term (current) drug therapy
CPT/HCPCS: A4606; A4663